=== PATIENT | female | born 1955 | race Caucasian/White ===

== ENCOUNTER 2018-05-02 13:44 | Emergency (ER) | payer BC ==
[2018-05-02] MEDS ORDERED: Metoclopramide 10 MG/2 ML SDV IV ONE (13:45)
[2018-05-02] MEDS ORDERED: Propofol 200 MG/20 ML SDV IV ONE (13:45)
--- NOTE | 2018-05-02 14:25 | CR ---
Clinical history: 62-year-old female right ankle deformity associated with fall. No comparison films immediately available. Interpretation: Abnormal. Comminuted trimalleolar ankle fracture i.e. spiral distal diaphyseal fibular; posterior/medial malleolar fractures distal right tibia. Significant ligamentous injury applied by pronounced anteromedial displacement of the distal tibia on the right talus. Bimalleolar soft tissue swelling and ankle joint effusion. Small heel spurs at the insertion Achilles tendon and plantar aponeurosis on the os calcis (pes cavus).
[2018-05-02 15:20] LABS: ANION GAP 14.2; CHLORIDE,CL 98 mmol/L (101-111); SODIUM,NA 138 mmol/L (135-145)
[2018-05-02] MEDS ORDERED: Lactated Ringers 1,000 ML IV ONE (15:25)
[2018-05-02] MEDS ORDERED: Metoclopramide 10 MG/2 ML SDV ONE (15:36)
--- NOTE | 2018-05-02 16:09 | EDM.PDOC ---
ED HPI GENERAL MEDICAL PROBLEM - General Chief Complaint: Lower Extremity Injury/Pain Stated Complaint: AMBULANCE Time Seen by Provider: 05/02/18 13:52 Source of Information: Reports: Patient, EMS, EMS Notes Reviewed, RN, RN Notes Reviewed History Limitations: Reports: No Limitations - History of Present Illness INITIAL COMMENTS - FREE TEXT/NARRATIVE: Patient presents to ER by [facility] with complaint of right ankle pain. Patient works in a [employer] and got tangled up in a cord for a shaver. She has right ankle deformity, swelling and bruising. She was given Fentanyl 50mcg en route by EMS. She rates her pain 2/10. Onset: Today Location: Reports: Lower Extremity, Right Quality: Reports: Ache Severity: Severe Improves with: Reports: None Worsens with: Reports: None Associated Symptoms: Reports: No Other Symptoms Right Ankle Pain Score (Numeric/FACES): 2 - Related Data Allergies Allergy/AdvReac Type Severity Reaction Status Date / Time Sulfa (Sulfonamide Allergy Itching Verified 05/02/18 13:53 Antibiotics) Home Meds: Home Meds Amitriptyline [Elavil] 50 mg PO BEDTIME 05/02/18 [History] Aspirin 81 mg PO DAILY 05/02/18 [History] Past Medical History Other HEENT History: wears glasses Cardiovascular History: Reports: None Respiratory History: Reports: None Gastrointestinal History: Reports: None Genitourinary History: Reports: None [employer] History: Reports: None Musculoskeletal History: Reports: None Neurological History: Reports: None Psychiatric History: Reports: None Endocrine/Metabolic History: Reports: None Hematologic History: Reports: None Immunologic History: Reports: None Oncologic (Cancer) History: Reports: None Dermatologic History: Reports: None Social & Family History - Tobacco Use Smoking Status *Q: Former Smoker Used Tobacco, but Quit: Yes Month/Year Tobacco Last Used: 4 Tobacco Use Comment: Stopped smoking 4 months ago in Nov. Review of Systems - Review of Systems Review Of Systems: ROS reveals no pertinent complaints other than HPI. ED EXAM, GENERAL - Physical Exam Exam: See Below Exam Limited By: No Limitations General Appearance: Alert, WD/WN, No Apparent Distress Eye Exam: Bilateral Eye: EOMI, Normal Inspection, PERRL Ears: Normal External Exam, Normal Canal, Hearing Grossly Normal, Normal TMs Nose: Normal Inspection, Normal Mucosa, No Blood Throat/Mouth: Normal Inspection, Normal Lips, Normal Teeth, Normal Gums, Normal Oropharynx, Normal Voice, No Airway Compromise Head: Atraumatic, Normocephalic Neck: Normal Inspection, Supple, Non-Tender, Full Range of Motion Respiratory/Chest: No Respiratory Distress, Lungs Clear, Normal Breath Sounds, No Accessory Muscle Use, Chest Non-Tender Cardiovascular: Normal Peripheral Pulses, Regular Rate, Rhythm, No Edema, No Gallop, No JVD, No Murmur, No Rub GI/Abdominal: Normal Bowel Sounds, Soft, Non-Tender, No Organomegaly, No Distention, No Abnormal Bruit, No Mass (Female) Exam: Deferred Rectal (Female) Exam: Deferred Back Exam: Normal Inspection, Full Range of Motion, NT Extremities: Other (right ankle has deformity, swelling and ecchymosis. ) Neurological: Alert, Oriented, CN II-XII Intact, Normal Cognition, Normal Gait, Normal Reflexes, No Motor/Sensory Deficits Psychiatric: Normal Affect, Normal Mood Skin Exam: Warm, Dry, Intact, Normal Color, No Rash Lymphatic: No Adenopathy ED TRAUMA EXTREMITY PROCEDURES - Joint Reduction Site: Other (right ankle) Sedation: Conscious Sedation Pre-Procedure NV Status: Normal Post-Procedure NV Status: Normal Technique: Traction/Counter Traction Number of Attempts: 1 Post-Reduction Imaging: Acceptably Reduced, Fracture Seen Joint Reduction Complications: No EKG INTERPRETATION EKG Date: 05/02/18 Time: 15:11 Rhythm: Other (sinus rhythm) Rate (Beats/Min): 98 EKG Interpretation Comments: EKG shows borderline T abnormalities, anterior-lateral leads. Course - Vital Signs Last Recorded V/S: Last Vital Signs Temp 98.6 F 05/02/18 13:44 Pulse 98 05/02/18 13:44 Resp 16 05/02/18 13:44 BP 158/65 H 05/02/18 13:44 Pulse Ox 100 05/02/18 13:44 - Orders/Labs/Meds Orders: Active Orders 24 hr Category Date Time Status EKG Documentation Completion [RC] STAT Care 05/02/18 14:46 Active Labs: Laboratory Tests 05/02/18 05/02/18 Range/Units 14:57 14:57 WBC 8.8 (5.0-10.0) 10^3/uL RBC 5.01 (4.2-5.4) 10^6/uL Hgb 13.5 (12.0-16.0) g/dL Hct 42.0 (37.0-47.0) % MCV 83.8 (80-100) fL MCH 26.9 L (27.0-34.0) pg MCHC 32.1 L (33.0-35.0) g/dL Plt Count 370 (150-450) 10^3/uL Neut % (Auto) 70.7 (42.2-75.2) % Lymph % (Auto) 18.4 L (20.5-50.1) % [place] % (Auto) 6.8 (2-8) % Eos % (Auto) 4.0 H (1.0-3.0) % Baso % (Auto) 0.1 (0.0-1.0) % Sodium 138 (135-145) mmol/L Potassium 3.2 L (3.6-5.0) mmol/L Chloride 98 L (101-111) mmol/L Carbon Dioxide 29.0 (21.0-31.0) mmol/L Anion Gap 14.2 BUN 11 (7-18) mg/dL Creatinine 0.6 (0.6-1.3) mg/dL Est Cr Clr Drug Dosing 86.36 mL/min Estimated GFR (MDRD) > 60 BUN/Creatinine Ratio 18.33 Glucose 123 H (74-105) mg/dL Calcium 9.3 (8.4-10.2) mg/dl Total Bilirubin 0.6 (0.2-1.0) mg/dL AST 24 (10-42) IU/L ALT 23 (10-60) IU/L Alkaline Phosphatase 91 (42-121) IU/L Total Protein 7.3 (6.7-8.2) g/dl Albumin 4.3 (3.2-5.5) g/dl Globulin 3.0 Albumin/Globulin Ratio 1.43 Meds: Medications Discontinued Medications Generic Name Dose Route Start Last Admin Trade Name Freq PRN Reason Stop Dose Admin Fentanyl 50 mcg 05/02/18 16:48 05/02/18 16:54 Sublimaze IVPUSH 05/02/18 16:49 50 mcg ONETIME ONE Administration Lactated Ringer's 1,000 mls @ 999 mls/hr 05/02/18 15:25 05/02/18 15:25 Ringers, Lactated IV 05/02/18 16:25 999 mls/hr .BOLUS ONE Administration Metoclopramide HCl Confirm 05/02/18 15:36 05/02/18 16:56 Reglan Administered 05/02/18 15:37 Not Given Dose 10 mg .ROUTE .STK-MED ONE - Radiology Interpretation Free Text/Narrative:: Right ankle x-ray: Comminuted trimalleolar ankle fracture i.e. spiral distal diaphyseal fibular; posterior/medial malleolar fractures distal right tibia. Significant ligamentous injury applied by pronounced anteromedial displacement of the distal tibia on the right talus. Bimalleolar soft tissue swelling and ankle joint effusion. Small heel spurs at the insertion Achilles tendon and plantar aponeurosis on the os calcis (pes cavus). See rad report. Post reduction right ankle x-ray: Abnormal soft tissue swelling and large ankle joint effusion. Satisfactory reduction and although there is persistent diastases both the medial malleolar and distal fibular fragment, there is generally good anatomic alignment. Now satisfactory orientation of the distal tibia to the talar dome i.e. reduced dislocation. See rad report. Departure - Departure Time of Disposition: 16:37 Disposition: Home, Self-Care 01 Condition: Fair Clinical Impression: Fracture of tibia and fibula Qualifiers: Encounter type: initial encounter Fracture type: closed Laterality: right Qualified Code(s): S82.201A - Unspecified fracture of shaft of right tibia, initial encounter for closed fracture - Discharge Information *PRESCRIPTION DRUG MONITORING PROGRAM REVIEWED*: No *COPY OF PRESCRIPTION DRUG MONITORING REPORT IN PATIENT LAZARO: No Instructions: Cast or Splint Care, Adult, [id number]-Cvxz, Tibial and Fibular Fractures Forms: ED Department Discharge Additional Instructions: Rest, Elevate and Ice the ankle May use oxycodone with APAP as directed for pain (this contains Tylenol so do not take Tylenol as well) In the morning, call [facility] [phone] Tell them you were seen in the ER and you were to call and find out a plan from Dr. Hart Nothing by mouth after midnight, until you talk to Dr. Hart and determine a plan (other than pain meds with sip of water) Keep splint clean and dry NO weight bearing on the right foot - My Orders Last 24 Hours: My Active Orders 05/02/18 14:46 EKG Documentation Completion [RC] STAT - Assessment/Plan Last 24 Hours: My Active Orders 05/02/18 14:46 EKG Documentation Completion [RC] STAT
--- NOTE | 2018-05-02 16:16 | CR ---
Clinical history: 62-year-old female with "trimalleolar fracture and tibiotalar dislocation right ankle". Reduction. Interpretation: Abnormal liver soft tissue swelling and large ankle joint effusion. Satisfactory reduction and although there is persistent diastases both the medial malleolar and distal fibular fragment, there is generally good anatomic alignment. Now satisfactory orientation of the distal tibia to the talar dome i.e. reduced dislocation.
[2018-05-02] MEDS ORDERED: fentaNYL 100 MCG/2 ML SDV IVPUSH ONE (16:48)
== END 2018-05-02 17:06 | disposition home or self-care (01) ==
LOC: DL.ED 13:44
DX: S82.851A Displaced trimalleolar fracture of right lower leg, initial encounter for closed fracture (principal); Z88.2 Allergy status to sulfonamides; W22.8XXA Striking against or struck by other objects, initial encounter; Y92.513 Shop (commercial) as the place of occurrence of the external cause; Z79.82 Long term (current) use of aspirin; Z79.899 Other long term (current) drug therapy; Z87.891 Personal history of nicotine dependence
CPT/HCPCS: 27818; 36415; 73600; 73610; 80053; 85025; 93005; 96361; 96374; 99284; J2704; J2765; J3010; J7120